=== PATIENT | female | born 1990 | race Caucasian/White ===

== ENCOUNTER 2017-09-21 04:55 | Inpatient (IN) | payer BC ==
[2017-09-20 12:35] LABS: RPR Titer ND
[2017-09-20 12:38] LABS: Absolute Lymphocytes (CBC) 1.5 K/uL (0.7-4.9); Absolute Monocytes 0.5 K/uL (0.1-1.3); Absolute Neutrophil 9.6 K/uL (1.8-8.0); Basophils % 0.1 % (0-1.3); Eosinophils % 0.7 % (0-4.4); Hematocrit 36.5 % (36.0-45.0); Lymphocytes % 12.9 % (15.3-44.8); MCH 28.4 pg (27.0-35.0); MCV 85.7 fL (80-100); MPV 8.4 fL (7.6-11.3); Monocytes % 4.5 % (3.3-12.3); RBC Red Blood Cell Count 4.26 M/uL (3.86-4.86)
[2017-09-20 12:46] LABS: Urine Appearance CLOUDY; Urine Bilirubin NEGATIVE (NEG); Urine Blood 2+ (NEG); Urine Color YELLOW; Urine Glucose NEGATIVE (NEG); Urine Protein TRACE (NEG); Urine Specific Gravity 1.015 (1.005-1.030); Urine Urobilinogen 0.2 mg/dL (0.2-1.0)
[2017-09-20 13:21] LABS: Urine Microscopic Reflex ORDER UMIC
[2017-09-20 14:13] LABS: Urine Bacteria <20 /HPF (<20); Urine Culture Reflex Order NOT NEEDED; Urine RBC 20-50 /HPF (NONE SEEN)
[~2017-09-21 04:55] MED LIST: Ringers Lactate 1,000 ML IV PRN
[2017-09-21] MEDS ORDERED: METHYLERGONOVINE 0.2MG/ML AMP IM ONE (04:59)
[2017-09-21] MEDS ORDERED: CARBOPROST TROME 250 MCG/ML IM ONE (05:00)
[2017-09-21] MEDS ORDERED: Ringers Lactate 1,000 ML IV SCH (05:00)
[2017-09-21] MEDS ORDERED: CEFAZOLIN/SWI 2gm 2 GM/20 ML SYR IV SCH (05:00)
[2017-09-21 05:35] VITALS: BMI 34.4
[2017-09-21] MEDS ORDERED: NA CIT/CITRIC AC 30 ML ORAL UDC PO ONE (06:00)
[2017-09-21] MEDS ORDERED: METOCLOPRAMIDE 10 MG/2mL INJ IV SCH (06:00)
[2017-09-21] MEDS ORDERED: FAMOTIDINE 20 MG/2 ML VIAL IV ONE (06:00)
[2017-09-21] MEDS ORDERED: OXYTOCIN 10 UNIT/ML ML IV ONE ×2 (07:34→08:12)
[2017-09-21] MEDS ORDERED: ATROPINE SULFATE 1 MG/ML INJ ONE (07:35)
[2017-09-21] MEDS ORDERED: MORPHINE SULFATE/PF 1 MG/ML (10 ML AMP) ONE (07:35)
[2017-09-21] MEDS ORDERED: EPHEDRINE SULF 50 MG/5 ML SYR ONE (07:49)
[2017-09-21] MEDS ORDERED: BISACODYL 10 MG RECTAL SUPP RECT PRN (08:54)
[2017-09-21] MEDS ORDERED: ACETAMINOPHEN 500 MG TAB PO PRN (08:54)
[2017-09-21] MEDS ORDERED: Oxycodone HCl/Acetaminophen 1 TAB TAB PO PRN (08:54)
[2017-09-21] MEDS ORDERED: DOCUSATE NA/SENNA CONC 1 TAB PO PRN (08:54)
[2017-09-21] MEDS ORDERED: METHYLERGONOVINE 0.2 MG TAB PO PRN (08:54)
[2017-09-21] MEDS ORDERED: ONDANSETRON 4 MG (ODT) TAB PO PRN (08:54)
[2017-09-21] MEDS ORDERED: IBUPROFEN 400 MG TAB PO PRN (08:55)
--- NOTE | 2017-09-21 08:57 | P.OP ---
Director [facility] [facility]: Shira Reynolds Preoperative diagnosis: 39 week 3 days h/o prior Postoperative diagnosis: same Primary procedure: Repeat low transverse section Secondary procedure: none Anesthesia: Spinal Estimated blood loss: 800 cc Specimen: cord blood, placenta Operative Technique: The patient was taken to the operating room where her spinal anesthesia was placed.. She was prepped and draped in the usual fashion for the procedure. After adequate spinal level was confirmed, the scalpel was utilized to make a transverse incision in the patient's lower abdominal wall. This incision was carried down to the level of the fascia, which was also transversely incised. After adequate hemostasis, the fascia was bluntly and sharply up from the underlying rectus muscle. The rectus muscle was in midline exposing the peritoneum. The peritoneum was carefully grasped and elevated with hemostats. It was entered in an up and down fashion with Metzenbaum scissors. The bladder blade was placed in the lower pole of the incision to protect the bladder. The uterus was palpated and inspected. A thin lower uterine segment was noted. The vertex presentation was confirmed. The scalpel was then utilized to make a transverse or Mace incision in the lower uterine wall. Clear fluid was noted upon entering into the amniotic space. A Kiwi vacuum was used to delivery the infant due to anteflexed head. A term viable female was delivered up through the incision. She had spontaneous respirations. She was given bulb suctioning for clear fluid. Her cord was clamped and cut and she was delivered off the field to nursery nurse. The baby girl was subsequently signed Apgars of 9 at one minute and 9 at five minutes. Her weight was found to be 8 pounds and 11 ounces. The placenta was manually extracted from the endometrial cavity. The uterus was delivered up into the operative field. The endometrial cavity was swiped clean with a moist laparotomy pad. The uterine incision was then closed in a two- layered fashion with 0 Vicryl suture, the first layer interlocking and the second layer imbricating. The uterine incision was noted to be hemostatic upon closure. Bladder flap was then reapproximated with a 3.0 vicryl. The uterus was rotated forward, normal tubes were noted on both sides. The left ovary was noted The uterus was then returned to its normal position of the abdominal cavity. The sponge and instrument count was performed for the first time at this point and found to be correct. A final check of the uterine incision confirmed hemostasis. The rectus muscle were stabilized across the midline. The subcutaneous tissue was then exposed, and the fascia closed with two running lengths of 0 Vicryl suture, beginning in lateral margins and overlapping the midline. The subcutaneous tissue was then irrigated and inspected. No active bleeding was noted. It was closed with a interrupted 2.0 plain catgut suture. The skin was then approximated with 3.0 vicryl on a Jean-Paul needle. The patient was transferred to the recovery room in stable condition. The estimated blood loss through the procedure was 800 mL. The sponge and instrument counts were performed two more times during closure and found to be correct each time. Complications: None Drain(s): Urinary catheter Transferred to: Recovery Room Condition: Good
[2017-09-21] MEDS ORDERED: PRENATAL VITAMIN PO SCH (09:00)
--- NOTE | 2017-09-21 16:47 | EKG ---
Test Date: 2017-09-21 Test Time: 16:23:13 Water Well Driller: SHAYNE MEASUREMENT RESULTS: Intervals: Rate: 84 KS: 150 QRSD: 74 QT: 336 QTc: 397 [place]: P: 48 KS: 150 QRS: -11 T: 31 INTERPRETIVE STATEMENTS: Sinus rhythm with frequent premature ventricular complexes Otherwise normal ECG No previous ECG available for comparison Electronically Signed On 09-21-17 16:46:50 CDT by Curly Aguayo
[2017-09-21 18:09] LABS: BUN Blood Urea Nitrogen 5 mg/dL (6-20); Bicarbonate 24 mEq/L (21-31); Glucose Level 72 mg/dL (65-120); Potassium 3.3 mEq/L (3.6-5.0); Sodium Level 136 mEq/L (135-145)
[2017-09-21 18:22] LABS: Magnesium 1.2 mg/dL (1.8-2.5)
[2017-09-21] MEDS ORDERED: Magnesium Sulfate 2gm IVPB 2 G/50 ML BAG IV ONE (18:31)
[2017-09-21] MEDS ORDERED: POTASSIUM 25 MEQ EFFERV TAB PO ONE ×2 (18:32→18:42)
[2017-09-21 21:35] LABS: RPR (Rapid Plasma Reagin) NON-REACT (NON-REACT)
--- NOTE | 2017-09-21 22:58 | CON ---
CARDIOLOGY CONSULTATION Reason For Consult: PVCs. History Of Present Illness: Ms. Lemus has had a healthy life. She is 2, para 2. Her last de livery was today, a section. Her first delivery likewise was a section. She seeme d to do well in every way, but while recovering, was noted to have a lot of PVCs on telemetry, also o n an EKG. There were no other abnormalities on the EKG. Because of this, we decided to check electr olytes. Both potassium and magnesium levels were low. The patient has a prior history of low potass ium levels associated with her first . She does not have any heart disease. No history of any heart surgeries. No histories of abnormal EKGs or test done on the heart. She felt her heart fl ip-flop during her first , does not feel anything now. Denies chest pain or shortness of br eath. Outpatient Medications: Have just been a vitamin. She denies using any supplements. Social History: No tobacco, alcohol, or illegal drugs. Physical Examination: Vital Signs: 5 feet 1 inches, 182 pounds. HEENT: Unremarkable. Lungs: Clear. Cardiac exam: Reveals a regular rate and rhythm. Abdomen: Soft. Extremities: Normal. No cyanosis, clubbing, or edema. Distal pulses normal. Diagnostic Data: The EKG is normal except for uniform PVCs. Assessment And Plan: I will recommend that we replete potassium and magnesium and try and check elec trolytes. Do an echocardiogram tomorrow to make sure this is not a sign of a cardiomyopathy. LEI/JERRY Voice ID: [id number] Report ID: [id number]
[2017-09-22] MEDS: Oxycodone HCl/Acetaminophen 1 TAB TAB PO PRN ×2 (00:30→16:33)
[2017-09-22 05:10] LABS: Absolute Lymphocytes (CBC) 1.8 K/uL (0.7-4.9); Basophils % 0.2 % (0-1.3); Eosinophils % 0.5 % (0-4.4); Hematocrit 31.6 % (36.0-45.0); Lymphocytes % 12.7 % (15.3-44.8); MCH 28.8 pg (27.0-35.0); MCV 85.7 fL (80-100); MPV 8.3 fL (7.6-11.3); Monocytes % 7.4 % (3.3-12.3); RBC Red Blood Cell Count 3.69 M/uL (3.86-4.86)
[2017-09-22 05:23] LABS: BUN Blood Urea Nitrogen 5 mg/dL (6-20); Bicarbonate 24 mEq/L (21-31); Glucose Level 86 mg/dL (65-120); Magnesium 1.5 mg/dL (1.8-2.5); Potassium 3.4 mEq/L (3.6-5.0); Sodium Level 134 mEq/L (135-145)
[2017-09-22] MEDS ORDERED: Magnesium Sulfate 2gm IVPB 2 G/50 ML BAG IV ONE (07:47)
[2017-09-22] MEDS ORDERED: POTASSIUM 25 MEQ EFFERV TAB PO ONE (07:47)
[2017-09-22] MEDS: KETOROLAC 30 MG/ML INJ IV PRN ×2 (11:32→23:15)
--- NOTE | 2017-09-22 11:45 | PN ---
The patient is seen by Dr. Aguayo yesterday as per Dr. Huber's request for PVCs. After , sh froylan was noted to have low magnesium and low potassium that have been supplemented. PVCs have decreased . Echocardiogram will be done today. If this is normal, we will continue her present regimen and arredondo ve her recheck her labs to make sure her potassium and potassium are within normal limits. We would not recommend beta blockade at this point. SREE/JERRY Voice ID: [id number] Report ID: [id number]
--- NOTE | 2017-09-22 12:26 | ECHO ---
HEIGHT: 5 ft 1 in WEIGHT: 182 lb 0 oz DATE OF STUDY: 09/22/[address]: Curly Aguayo MD 2-DIMENSIONAL: YES M.MODE: YES DOPPLER: YES COLOR FLOW: YES TDS: NO PORTABLE: NO DEFINITY: NO BUBBLE STUDY: NO DIAGNOSIS: PREMATURE VENTRICULAR COMPLEXES CARDIAC HISTORY: CATHERIZATION: NO SURGERY: NO PROSTHETIC VALVE: NO PACEMAKER: NO MEASUREMENTS (cm) DIASTOLIC (NORMALS) SYSTOLIC (NORMALS) IVSd 1.1 (0.6-1.2) LA Diam 3.3 (1.9-4.0) LVEF 52% LVIDd 4.8 (3.5-5.7) LVIDs 3.5 (2.0-3.5) %FS 27% LVPWd 1.0 (0.6-1.2) Ao Diam 2.6 (2.0-3.7) 2 DIMENSIONAL ASSESSMENT: RIGHT ATRIUM: NORMAL LEFT ATRIUM: NORMAL RIGHT VENTRICLE: NORMAL LEFT VENTRICLE: NORMAL TRICUSPID VALVE: NORMAL MITRAL VALVE: NORMAL PULMONIC VALVE: NORMAL AORTIC VALVE: NORMAL PERICARDIAL EFFUSION: NONE AORTIC ROOT: NORMAL LEFT VENTRICULAR WALL MOTION: NORMAL DOPPLER/COLOR FLOW: MILD TRICUSPID REGURGITATION. NORMAL RIGHT VENTRICULAR SYSTOLIC PRESSURE. COMMENTS: NORMAL 2D ECHOCARDIOGRAM. MILD TRICUSPID REGURGITATION. TECHNOLOGIST: Parish CARTER
[2017-09-22] MEDS ORDERED: SODIUM CHLORIDE 0.9% 10ML INJ IV ONE (23:15)
[2017-09-23] MEDS: Oxycodone HCl/Acetaminophen 1 TAB TAB PO PRN (04:50)
[2017-09-23 07:31] VITALS: BP 129/80; TEMP 97.3
[2017-09-23] MEDS ORDERED: Tdap (Diph,Pertuss(Acell),Tet Vac) 0.5 ML SYR IMVAC ONE ×2 (09:59→10:16)
[2017-09-23 19:43] LABS: HBsAG Nonreactive (Nonreactive)
--- NOTE | 2017-09-30 22:14 | P.DS ---
Admission Date: 09/21/17 Discharge Date: 09/23/17 Disposition: ROUTINE DISCHARGE Discharge Condition: GOOD Consultations: Cardiology Brief History of Present Illness: Patient presented at 39+ weeks gestation with h/o one prior section scheduled for a repeat section. Hospital Course: Patient did well during surgery. She did develop PVCs on her cardiac monitoring . Therefore she was seen by Cardiology. An echocardiogram was done and there was no evidence of an acute issue. Patient is recovering well. She is voiding without difficulty. She is tolerating a regular diet. Her pain is well controlled. She is bonding well with the baby. Vital Signs/Physical Exam: Temp Pulse Resp BP Pulse Ox 97.3 F 86 18 129/80 0 L 09/23/17 07:15 09/23/17 07:15 09/23/17 07:15 09/23/17 07:15 09/23/17 04:30 General: Alert, In no apparent distress HEENT: Atraumatic Neck: Supple Respiratory: Normal air movement Cardiovascular: No edema, Normal pulses Gastrointestinal: Soft and benign, No ascites, Other (incision clean dry and intact) Musculoskeletal: No clubbing, No swelling Neurological: Normal gait, Normal speech Laboratory Data at Discharge: WBC 13.8 K/uL (4.3-10.9) H D 09/22/17 04:30 Hgb 10.6 g/dL (12.0-15.0) L 09/22/17 04:30 Hct 31.6 % (36.0-45.0) L 09/22/17 04:30 Plt Count 214 K/uL (152-406) 09/22/17 04:30 Sodium 134 mEq/L (135-145) L 09/22/17 04:30 Potassium 3.4 mEq/L (3.6-5.0) L 09/22/17 04:30 BUN 5 mg/dL (6-20) L 09/22/17 04:30 Creatinine 0.45 mg/dL (0.44-1.00) 09/22/17 04:30 Glucose 86 mg/dL (65-120) 09/22/17 04:30 Magnesium 1.5 mg/dL (1.8-2.5) L 09/22/17 04:30 Home Medications: Vitamin [ VITAMIN*] 1 tab PO DAILY 09/21/17 Codeine/APAP [Tylenol W/Codeine #3 tab] 1 tab PO Q6HP PRN #25 tab 09/23/17 New Medications: Codeine/APAP [Tylenol W/Codeine #3 tab] 1 tab PO Q6HP PRN #25 tab PRN Reason: Pain Diet: Regular Activity: No lifting more than 10 lbs Followup: Montez Huber DO [Family Provider] - (Follow up care with Dr. Huber in 4-6 weeks. [phone])
== END 2017-09-23 10:40 | disposition home or self-care (01) | DRG 766 ==
LOC: 2ND-WC 04:55 → EDSTATUS 07:30
PROVIDERS: ADMIT Student in an Organized Health Care Education/Training Program; ATTEND Student in an Organized Health Care Education/Training Program
PROC: 10D00Z1 Extraction of Products of Conception, Low, Open Approach (ICD-10-PCS; principal; 2017-09-21 07:30)
DX: O34.211 Maternal care for low transverse scar from previous cesarean delivery (principal); Z3A.39 39 weeks gestation of pregnancy; Z37.0 Single live birth; O90.89 Other complications of the puerperium, not elsewhere classified; I49.3 Ventricular premature depolarization; E83.42 Hypomagnesemia; E87.6 Hypokalemia; Z23 Encounter for immunization
CPT/HCPCS: 36415; 80048; 81003; 81015; 83735; 85025; 86592; 86850; 86900; 86901; 87340; 88305; 88307; 90715; 93005; 93306; J0461; J0690; J2210; J2590; J2765; J3475